=== PATIENT | male | born 1960 | race Caucasian/White ===

== ENCOUNTER 2019-05-09 08:50 | Observation (INO) | payer OTHER ==
[~2019-05-09] VITALS: Ht 177.8 cm; Wt 131.5 kg
[2019-05-09] MEDS ORDERED: ASPIRIN 81 MG CHEW TAB PO ONE (09:00)
[2019-05-09 09:16] LABS: BASOPHILS # (AUTO) 0.1 (0.0-0.1); BASOPHILS % 1.2 % (0.0-1.0); EOSINOPHILS # (AUTO) 0.2 (0.0-0.4); EOSINOPHILS % 3.2 % (0.0-6.0); HEMATOCRIT 36.8 % (38.2-49.6); HEMOGLOBIN 12.7 g/dL (14.0-18.0); LYMPHOCYTES # (AUTO) 1.7 (1.0-3.2); MEAN CORPUSCULAR HEMOGLOBIN 29.1 pg (28-32); MEAN CORPUSCULAR HGB CONC 34.5 g/dL (31-35); MEAN CORPUSCULAR VOLUME 84.2 fL (81-99); MONOCYTES # (AUTO) 0.7 (0.2-0.8); MONOCYTES % 10.2 % (4.4-11.3); NEUTROPHILS # (AUTO) 3.9 (2.1-6.9); NEUTROPHILS % 58.9 % (38.7-80.0); PLATELET COUNT 246 x10e3/uL (140-360); RED BLOOD COUNT 4.37 x10e6/uL (4.3-5.7); RED CELL DISTRIBUTION WIDTH 13.1 % (11.7-14.4)
--- NOTE | 2019-05-09 09:31 | Diagnostic Imaging Report ---
EXAMINATION: CHEST SINGLE (PORTABLE) INDICATION: Chest pain COMPARISON: None FINDINGS: LINES/TUBES:None LUNGS:The lungs are well-inflated. No focal consolidation or pulmonary edema. PLEURA:No pleural effusion or pneumothorax. MEDIASTINUM:The cardiomediastinal silhouette appears normal in size and shape. BONES/SOFT TISSUES:No acute osseous injury. ABDOMEN:No free air under the diaphragm. IMPRESSION: No focal pneumonia or pulmonary edema. Signed by: Yusuf Holloway MD on 05/09/2019 9:28 AM
[2019-05-09 09:33] LABS: INR 1.15; PROTHROMBIN TIME 15.4 seconds (11.9-14.5)
[2019-05-09 09:42] LABS: ALBUMIN 3.1 g/dL (3.5-5.0); ALBUMIN/GLOBULIN RATIO 0.9 (0.8-2.0); ANION GAP 12.6 mmol/L (8-16); CALCIUM 9.1 mg/dL (8.4-10.2); CREATININE, SERUM 1.39 mg/dL (0.72-1.25); MAGNESIUM 1.7 MG/DL (1.3-2.1); POTASSIUM 4.6 mmol/L (3.5-5.1)
[2019-05-09 09:52] LABS: CREATINE KINASE MB 4.6 ng/mL (0-5.0)
[2019-05-09] MEDS ORDERED: NITROGLYCERIN 0.4 MG SUBL SL PRN (10:45)
[2019-05-09] MEDS ORDERED: ONDANSETRON HCL INJ 2MG/ML 2ML 2 MG/ML VIAL IV PRN (10:45)
[2019-05-09] MEDS ORDERED: DEXTROSE 50% SYRINGE 50 ML IV PRN (10:45)
[2019-05-09] MEDS ORDERED: MORPHINE SULFATE 2 MG/ML SYR 1ML IV PRN (10:45)
[2019-05-09] MEDS ORDERED: FAMOTIDINE 20 MG/2 ML VIAL IV SCH (11:00)
--- OUTSIDE RECORDS SUMMARY | 2019-05-09 11:29 | XMS REPORT ---
Author Author [facility] Address Unknown Phone Unavailable Care Team Providers Care Supervisor Delivery Department Name Role Phone Kimberli WALLER Unavailable Unavailable Problems This patient has no known problems. Allergies, Adverse Reactions, Alerts This patient has no known allergies or adverse reactions. Medications This patient has no known medications. Results Test Description Test Time Test Comments Text Results Atomic Results Result Comments CHEST SINGLE (PORTABLE) 2019-05-09 09:27:00 [place] [address] Patient Name: MAHAMED LEGER MR #: [id number] : 1960 Age/Sex: 59/M Req #: [id number] Adm Physician: Ordered by: LYN WALLER MD Report #: [id number] Location: ER Room/Bed: Procedure: [id number] DX/CHEST SINGLE (PORTABLE) Exam Date: Exam Time: REPORT STATUS: Signed EXAMINATION: CHEST SINGLE (PORTABLE) INDICATION: Chest pain COMPARISON: None FINDINGS: LINES/TUBES:None LUNGS:The lungs are well-inflated. No focal consolidation or pulmonary edema. PLEURA:No pleural effusion or pneumothorax. MEDIASTINUM:The cardiomediastinal silhouette appears normal in size and shape. BONES/SOFT TISSUES:No acute osseous injury. ABDOMEN:No free air under the diaphragm. IMPRESSION: No focal pneumonia or pulmonary edema. Signed by: Tessa Vogel MD on 05/09/2019 9:28 AM Dictated By: TESSA VOGEL MD 7 Transcribed By: PATRICIA TEJEDA on 05/09/19927 COPY TO: LYN WALLER MD
[2019-05-09] MEDS ORDERED: INSULIN LISPRO 100 UNIT/1 ML 3ML VIAL SQ SCH (11:30)
[2019-05-09 14:53] LABS: CREATINE KINASE MB 4.2 ng/mL (0-5.0)
--- NOTE | 2019-05-09 21:48 | History and Physical ---
PRIMARY CARE PHYSICIAN: Dr. Mcwilliams at [facility] in [place]. PARK GUIDE: Dr. Chaudhary at [facility]. CHIEF COMPLAINT: Right-sided chest pain. HISTORY OF PRESENT ILLNESS: This is a 59-year-old male with past medical history of hypertension, high cholesterol, CAD status post recent stent to the LAD, diabetes, CKD, CML, questionable renal nodule status post biopsy, presented to the ER with complaints of right-sided chest pain that started last night. He reports was working on a high way lifting heavy and felt tenderness on the right side of his chest. He went home, thinking it might just be soreness, but he continued to have the chest pain throughout the night, radiating to his right side of jaw. He said he also reports having mild shortness of breath. He denies any fever, chills, nausea, vomiting, diaphoresis. He reports the pain remained at 4/10 at the most and is currently at 2/10. He reports the pain is improved, mildly present with palpation, likely muscular. In the ER, normal sinus rhythm on EKG. Troponin 0.055. BNP is 10.4. Chest x-ray is unremarkable. We will monitor on tele. PAST MEDICAL HISTORY: 1. Hypertension. 2. High cholesterol. 3. Diabetes type 2. 4. CAD, status post stent to the LAD. 5. CKD 3. 6. CML, on remission. SURGICAL HISTORY: 1. Stent, cardiac. 2. Knee as a child. 3. Appendectomy. 4. Renal biopsy. FAMILY MEDICAL HISTORY: Reports father had heart disease and kidney failure. Mother had lymphoma. SOCIAL HISTORY: He denies any tobacco use. Occasional use of alcohol and denies any illicit drug use. 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 ALLERGIES: NO KNOWN DRUG ALLERGIES. REVIEW OF SYSTEMS: GENERAL: Fatigue. HEENT: No head trauma. LUNGS: Mild shortness of breath. Denies any cough. CARDIOVASCULAR: Chest pain, right-sided. GI: No nausea or vomiting. NEURO: No dizziness. MUSCULOSKELETAL: No focal weakness. SKIN: No rash. PSYCH: Calm. PHYSICAL EXAMINATION: VITAL SIGNS: Temperature 97.7, pulse is 64, respirations 18, blood pressure 183/103, pulse ox is 98% on room air. GENERAL: No acute distress. HEENT: Normocephalic, atraumatic. NECK: Supple. LUNGS: Clear to auscultation. CARDIOVASCULAR: Regular rate and rhythm. GI: Soft and nontender. NEUROLOGIC: Alert, awake, and oriented x3. MUSCULOSKELETAL: Moves all extremities. SKIN: Dry. PSYCH: Calm. LABORATORY DATA: WBC 6.55, hemoglobin 12.7, hematocrit 36.8, platelets 246. Sodium 133, potassium 4.6. BUN is 25, creatinine 1.39, estimated GFR 53. AST 29, ALT 30, magnesium 1.7. CK 340, CK-MB 4.6, troponin 0.055 and 0.048. BNP is 10.4, total protein 6.4, albumin 3.1. PT 15.4, INR 1.15, APTT 30.0. IMAGING: Chest x-ray, no focal pneumonia or pulmonary edema noted. IMPRESSION: 1. Chest pain. Ruled out acute coronary syndrome. Likely muscular pain. Pain is located on the right side. Chest x-ray unremarkable, troponin x2 negative. BNP 10. Chest pain has resolved. The patient refused Cardiology evaluation here and wants to follow up with his vendor analyst at [facility] in [place], [place]. We will resume his aspirin, Eliquis, beta-blockers, and statin. 2. Coronary artery disease, status post stent to the left anterior descending. We will resume Eliquis, aspirin, and statin. 3. Diabetes, uncontrolled. Last hemoglobin A1c was 10.2 per the patient's records. FOLLOWUP: 1. Follow up with PCP for diabetic management. 2. Hypertension, accelerated. Continue home dose of carvedilol and ARBs. 3. HLD. Continue statin. 4. Acute kidney injury on chronic kidney disease. Creatinine 1.39. Advised to increase his fluid intake some. 5. History of chronic myelogenous leukemia, on remission, follow up with oncologist as outpatient. 6. Hyponatremia. May be due to dehydration. Advised to increase his fluid intake. 7. Deep venous thrombosis prophylaxis. Continue Eliquis. PLAN: The patient is requesting to go home. If cardiac markers are negative, we will discharge home to follow up with his vendor analyst soon. He is advised to follow up sooner or go to the nearest ER if chest pain continues. Verbalize understanding and we will resume all his home medications. Dictated by SUNDAY Lainez Yiching MD AMANDA Johnson/RADHA /[id number]
--- NOTE | 2019-05-11 14:13 | Discharge Summary ---
PRIMARY CARE PHYSICIAN: Dr. Mcwilliams at [facility] in [place]. UPHOLSTERY AUTO TRIMMER: Dr. Peñaloza at [facility] in [place]. FINAL DIAGNOSES: 1. Chest pain, rule out acute coronary syndrome. 2. History of coronary artery disease, status post stent in the left anterior descending. 3. Diabetes, uncontrolled. 4. Hypertension. 5. High cholesterol. 6. Acute kidney injury on chronic kidney disease. 7. History of chronic myelogenous leukemia. 8. Hyponatremia. CONSULTANTS: None. PROCEDURES: None. HISTORY: Per HPI. HOSPITAL COURSE: This is a 59-year-old male with past medical history of hypertension, high cholesterol, CAD, status post recent stent to the LAD; uncontrolled diabetes, CKD, CML, in remission, presented to the ER with complaints of right-sided chest pain. Troponins x2 were negative. Vital signs were stable. BNP 10.4. Chest x-ray was unremarkable. EKG, normal sinus rhythm with no acute changes. He reported pain was induced by palpation of the right lower side. He denied any fever, chills, nausea, vomiting, or cough. He reports maybe likely due to muscular inflammation due to physical work. He was monitored in the ER with no further chest pain. He requested to go home to follow up with his tip bander and PCP per appointment tomorrow. He reports pain is 2/10 and is 0 at rest. Vital signs are stable. We will discharge home for him to follow up with his primary and tip bander. He refused cardiac workup here in the facility. PHYSICAL EXAMINATION: VITAL SIGNS: Temperature 97.7, pulse is 64, respirations 18, blood pressure 183/103, pulse ox is 98% on room air. GENERAL: No acute distress. HEENT: Normocephalic. LUNGS: Clear. CARDIOVASCULAR: Regular rate and rhythm. GI: Soft and nontender. MUSCULOSKELETAL: Moves all extremities. CONDITION AT DISCHARGE: Improved and stable. DISCHARGE MEDICATIONS: See medication reconciliation list. FOLLOWUP: Follow up with PCP and tip bander per appointment. TIME SPENT: Total discharge time is 35 minutes. Dictated by SUNDAY Lainez Daryaching Phuc Allison MD MY/MODL /[id number]
== END 2019-05-09 16:37 | disposition home or self-care (01) ==
LOC: ER 08:50 → ERHOLD 10:32
PROVIDERS: ADMIT Internal Medicine; ATTEND Internal Medicine
DX: R07.89 Other chest pain (principal); I25.10 Atherosclerotic heart disease of native coronary artery without angina pectoris; E11.65 Type 2 diabetes mellitus with hyperglycemia; E78.00 Pure hypercholesterolemia, unspecified; Z85.6 Personal history of leukemia; E87.1 Hypo-osmolality and hyponatremia; N17.9 Acute kidney failure, unspecified; E11.22 Type 2 diabetes mellitus with diabetic chronic kidney disease; I12.9 Hypertensive chronic kidney disease with stage 1 through stage 4 chronic kidney disease, or unspecified chronic kidney disease; N18.3 Chronic kidney disease, stage 3 (moderate); Z95.5 Presence of coronary angioplasty implant and graft
CPT/HCPCS: 36415; 71045; 80053; 82550; 82553; 83735; 83880; 84484; 85025; 85610; 85730; 93005; 99284; G0378